=== PATIENT | female | born 1965 | race Caucasian/White ===

== ENCOUNTER 2018-08-11 23:15 | Emergency (ER) | payer OTHER ==
[~2018-08-11] VITALS: Ht 157.5 cm; Wt 101.6 kg
[~2018-08-11 23:15] MED LIST: CIPRO500 MG PO; PERCOCET 5/3251 TAB PO
[2018-08-11] MEDS ORDERED: LOSARTAN POTASS50 MG (23:33)
[2018-08-11] MEDS ORDERED: METFORMIN HCL500 M1 (23:33)
[2018-08-12] MEDS ORDERED: PEPCID40 MG PO ×2 (04:43→04:44)
[2018-08-12] MEDS ORDERED: ZYNCOF 20-400120 ML PO (04:43)
== END 2018-08-12 04:54 | disposition home or self-care (01) ==
LOC: ER 23:15
DX: J40 Bronchitis, not specified as acute or chronic (principal)

== ENCOUNTER 2018-08-14 17:30 | Emergency (ER) | payer OTHER ==
[~2018-08-14] VITALS: Ht 157.5 cm; Wt 101.6 kg
[~2018-08-14 17:30] MED LIST changes: +LOSARTAN POTASS50 MG; +METFORMIN HCL500 M1; +PEPCID40 MG PO; +ZYNCOF 20-400120 ML PO
[2018-08-14] MEDS ORDERED: HYDROCHLOROTHIA25 MG (17:43)
== END 2018-08-14 18:20 | disposition home or self-care (01) ==
LOC: ER 17:30
DX: J06.9 Acute upper respiratory infection, unspecified (principal)

== ENCOUNTER 2019-03-20 12:05 | Emergency (ER) | payer OTHER ==
[~2019-03-20] VITALS: Ht 157.5 cm; Wt 95.3 kg
[~2019-03-20 12:05] MED LIST changes: +HYDROCHLOROTHIA25 MG
== END 2019-03-20 13:51 | disposition home or self-care (01) ==
LOC: ER 12:05
DX: J03.90 Acute tonsillitis, unspecified (principal)

== ENCOUNTER 2022-03-26 08:28 | Emergency (ER) | payer OTHER ==
[~2022-03-26] VITALS: Ht 157.5 cm; Wt 97.5 kg
[2022-03-26] MEDS ORDERED: HYZAAR 100-251 EACH PO (08:34)
[2022-03-26] MEDS ORDERED: VALTREX1000 MG PO (08:35)
[2022-03-26] MEDS ORDERED: JARDIANCE25 MG PO (08:35)
[2022-03-26] MEDS ORDERED: DAFLONEX-XL 11300 MG PO (08:35)
[2022-03-26] MEDS ORDERED: OMEPRAZOLE MAGN20 MG PO (16:22)
[2022-03-26] MEDS ORDERED: PEPCID AC20 MG PO (16:22)
[2022-03-26] MEDS ORDERED: KETO10TA2 PO (16:30)
== END 2022-03-26 16:43 | disposition home or self-care (01) ==
LOC: ER 08:28
DX: K76.0 Fatty (change of) liver, not elsewhere classified (principal); E11.9 Type 2 diabetes mellitus without complications; I10 Essential (primary) hypertension; Z88.8 Allergy status to other drugs, medicaments and biological substances

== ENCOUNTER 2022-07-27 15:12 | Emergency (ER) | payer OTHER ==
[~2022-07-27] VITALS: Ht 157.5 cm; Wt 95.3 kg
[~2022-07-27 15:12] MED LIST changes: +DAFLONEX-XL 11300 MG PO; +HYZAAR 100-251 EACH PO; +JARDIANCE25 MG PO; +KETO10TA2 PO; +OMEPRAZOLE MAGN20 MG PO; +PEPCID AC20 MG PO; +VALTREX1000 MG PO
== END 2022-07-27 21:45 | disposition home or self-care (01) ==
LOC: ER 15:12
DX: T65.891A Toxic effect of other specified substances, accidental (unintentional), initial encounter (principal); Y92.010 Kitchen of single-family (private) house as the place of occurrence of the external cause; Z88.8 Allergy status to other drugs, medicaments and biological substances

== ENCOUNTER 2022-12-16 16:10 | Emergency (ER) | payer OTHER ==
[~2022-12-16] VITALS: Ht 157.5 cm; Wt 86.2 kg
[2022-12-16] MEDS ORDERED: HYDROCHLOROTHIA25 MG (16:39)
[2022-12-16] MEDS ORDERED: SINGULAIR10 MG (16:39)
== END 2022-12-16 18:05 | disposition home or self-care (01) ==
LOC: ER 16:10
DX: S69.91XA Unspecified injury of right wrist, hand and finger(s), initial encounter (principal); S59.901A Unspecified injury of right elbow, initial encounter; S89.91XA Unspecified injury of right lower leg, initial encounter; W19.XXXA Unspecified fall, initial encounter; Y93.89 Activity, other specified; Y92.89 Other specified places as the place of occurrence of the external cause; Y99.9 Unspecified external cause status; E11.9 Type 2 diabetes mellitus without complications; Z79.84 Long term (current) use of oral hypoglycemic drugs; I10 Essential (primary) hypertension; Z88.8 Allergy status to other drugs, medicaments and biological substances; Z87.09 Personal history of other diseases of the respiratory system

== ENCOUNTER 2023-01-03 12:57 | Emergency (ER) | payer OTHER ==
[~2023-01-03] VITALS: Ht 157.5 cm; Wt 86.2 kg
[~2023-01-03 12:57] MED LIST changes: +SINGULAIR10 MG
== END 2023-01-03 15:09 | disposition home or self-care (01) ==
LOC: ER 12:57
DX: S69.81XA Other specified injuries of right wrist, hand and finger(s), initial encounter (principal); W19.XXXA Unspecified fall, initial encounter; Y93.89 Activity, other specified; Y92.89 Other specified places as the place of occurrence of the external cause; Y99.8 Other external cause status; Z88.6 Allergy status to analgesic agent

== ENCOUNTER 2023-04-06 13:38 | Emergency (ER) | payer OTHER ==
[~2023-04-06] VITALS: Ht 157.5 cm; Wt 79.4 kg
[2023-04-06] MEDS ORDERED: DICLOFENAC SODI75 MG PO (15:41)
[2023-04-06] MEDS ORDERED: KETO10TA2 PO (15:45)
== END 2023-04-06 15:45 | disposition home or self-care (01) ==
LOC: ER → EDBD 13:39 → ER 13:39
DX: M25.572 Pain in left ankle and joints of left foot (principal); Z88.8 Allergy status to other drugs, medicaments and biological substances; M77.32 Calcaneal spur, left foot

== ENCOUNTER 2023-05-03 10:27 | Emergency (ER) | payer OTHER ==
[~2023-05-03] VITALS: Ht 157.5 cm; Wt 79.4 kg
[~2023-05-03 10:27] MED LIST changes: +DICLOFENAC SODI75 MG PO
[2023-05-03] MEDS ORDERED: CRESTOR10 MG PO (10:46)
[2023-05-03] MEDS ORDERED: MONJARO (10:46)
== END 2023-05-03 15:49 | disposition home or self-care (01) ==
LOC: ER 10:28
DX: H83.02 Labyrinthitis, left ear (principal); I10 Essential (primary) hypertension; Z88.8 Allergy status to other drugs, medicaments and biological substances

== ENCOUNTER 2023-05-18 08:47 | Outpatient (CLI) | payer OTHER ==
[~2023-05-18 08:47] MED LIST changes: +CRESTOR10 MG PO; +MONJARO
[2023-05-18 10:41] LABS: ALBUMIN 3.6 gm/dL (3.4-5.0); BILIRUBIN TOTAL 0.58 mg/dL (0.3-1.2); CALCIUM 9.4 mg/dL (8.5-10.1); CREATININE SERUM 0.74 mg/dL (0.55-1.02); GFR 80.89; GLOBULINA 3.4 G/DL (2.4-3.5); MAGNESIUM 2.3 mg/dL (1.8-2.4); PHOSPHOROUS 3.8 mg/dL (2.5-4.9); POTASSIUM 4.26 mEq/L (3.5-5.1)
== END 2023-05-18 09:15 | disposition home or self-care (01) ==
LOC: LAB 08:47
PROVIDERS: Internal Medicine Endocrinology, Diabetes & Metabolism; ATTEND Orthopaedic Surgery
DX: E55.9 Vitamin D deficiency, unspecified (principal); M85.9 Disorder of bone density and structure, unspecified; E83.42 Hypomagnesemia; E56.1 Deficiency of vitamin K; E21.3 Hyperparathyroidism, unspecified; E88.89 Other specified metabolic disorders; M81.8 Other osteoporosis without current pathological fracture

== ENCOUNTER 2023-07-03 18:31 | Emergency (ER) | payer OTHER ==
[~2023-07-03] VITALS: Ht 157.5 cm; Wt 77.1 kg
[2023-07-03] MEDS ORDERED: FAMOTIDINE/PF 20 MG in 0.9 % SODIUM CHLORIDE 8 ML IV PUSH STA (18:51)
[2023-07-03] MEDS ORDERED: KETOROLAC TROMETHAMINE 30 MG VIAL IV ONE (19:00)
[2023-07-03] MEDS ORDERED: 0.9 % SODIUM CHLORIDE 1,000 ML IV SCH (19:00)
[2023-07-03 19:51] LABS: HEMATOCRIT 39.7 % (36.0-45.00); HEMOGLOBIN 13.1 g/dL (12.0-15.00); MEAN CELL VOLUME 92.2 fL (80.00-100.00); MEAN CORPUSCULAR HEMOGLOBIN 30.5 pg (27.00-32.0); PLATELET COUNT 339 K/uL (150-450); RED BLOOD COUNT 4.31 M/uL (4.00-6.00); RED CELL DISTRIBUTION WIDTH 14.5 % (11.5-14.5)
[2023-07-03 20:12] LABS: ALBUMIN 3.4 gm/dL (3.4-5.0); BILIRUBIN TOTAL 0.57 mg/dL (0.3-1.2); CREATININE SERUM 0.7 mg/dL (0.55-1.02); GFR 86.25; GLOBULINA 3.3 G/DL (2.4-3.5); POTASSIUM 3.81 mEq/L (3.5-5.1); TOTAL PROTEIN 6.7 gm/dL (6.4-8.2)
[2023-07-03] MEDS ORDERED: DICLOFENAC SODI75 MG PO (21:24)
== END 2023-07-03 22:49 | disposition home or self-care (01) ==
LOC: ER 18:32
PROVIDERS: General Practice
DX: R10.11 Right upper quadrant pain (principal); Z88.8 Allergy status to other drugs, medicaments and biological substances

== ENCOUNTER 2024-03-03 08:58 | Emergency (ER) | payer OTHER ==
[~2024-03-03] VITALS: Ht 157.5 cm; Wt 82.1 kg
[~2024-03-03 08:58] MED LIST changes: +COZAAR100 MG; +HYDRALAZINE HCL25 MG; +JARDIANCE10 MG; +MOUNJARO2.5 MG/0.5; +SINGULAIR 5MG5 MG
[2024-03-03] MEDS ORDERED: ASPIRIN 81 MG TABLET.EC PO ONE (09:45)
[2024-03-03] MEDS ORDERED: TRAMADOL HCL 50 MG TABLET PO ONE (10:00)
[2024-03-03 10:13] LABS: HEMATOCRIT 47.1 % (36.0-45.00); HEMOGLOBIN 15.9 g/dL (12.0-15.00); MEAN CELL VOLUME 91.3 fL (80.00-100.00); MEAN CORPUSCULAR HEMOGLOBIN 30.9 pg (27.00-32.0); MEAN CORPUSCULAR HGB CONC 33.8 g/dl (32.0-36.0); PLATELET COUNT 434 K/uL (150-450); RED BLOOD COUNT 5.16 M/uL (4.00-6.00); RED CELL DISTRIBUTION WIDTH 14.4 % (11.5-14.5)
[2024-03-03 10:18] LABS: ABG PH 7.436 (7.35-7.45); ABG PO2 92.5 mmHg (80-100); ABG pCO2 33.6 mmHg (35-45); BASE EXCESS -1.3 mmol/l; BICARBONATE 22.1 mmol/l (23-25); SaO2 97.4 %; Tco2 23.1 mmol/l
[2024-03-03 10:41] LABS: PARTIAL THROMBOPLASTIN TIME 27.8 SECONDS (22.0-34.0); PROTHROMBIN TIME 10.9 SECONDS (9.0-11.5)
[2024-03-03 10:47] LABS: PH,URINE 5.5 (5.0-8.0); URINE APPEARANCE Clear; URINE BILIRRUBIN Negative (NEGATIVE); URINE BLOOD Negative; URINE COLOR Yellow; URINE KETONE Negative (NEGATIVE); URINE LEUKOCYTE Negative; URINE NITRATE Negative; URINE PROTEIN Negative (NEGATIVE); URINE UROBILINOGEN 0.2 E.U./dl
[2024-03-03 10:50] LABS: URINE RBC 10.6 uL (0.0-20.8)
[2024-03-03 11:06] LABS: BILIRUBIN TOTAL 0.48 mg/dL (0.3-1.2); CALCIUM 10.4 mg/dL (8.5-10.1); CREATININE SERUM 0.87 mg/dL (0.55-1.02); GFR 66.87; GLOBULINA 4.4 G/DL (2.4-3.5); POTASSIUM 3.68 mEq/L (3.5-5.1); TOTAL PROTEIN 8.4 gm/dL (6.4-8.2)
[2024-03-03 11:14] LABS: URINE GLUCOSE >=1000 MG/DL (NEGATIVE); URINE WBC 1.2 uL (0.0-23.2)
[2024-03-03 11:21] LABS: allen test SATISFACTORY; o2 21 %; puncture site RADIAL RIGHT
[2024-03-03] MEDS ORDERED: KETO10TA2 PO (15:26)
== END 2024-03-03 16:12 | disposition home or self-care (01) ==
LOC: ER 08:59
PROVIDERS: General Practice
DX: R07.89 Other chest pain (principal); I10 Essential (primary) hypertension; E11.9 Type 2 diabetes mellitus without complications; Z88.6 Allergy status to analgesic agent

== ENCOUNTER 2024-10-14 22:27 | Emergency (ER) | payer OTHER ==
[~2024-10-14] VITALS: Ht 157.5 cm; Wt 90.7 kg
[2024-10-14] MEDS ORDERED: AVAPRO300 MG PO (23:19)
[2024-10-15] MEDS ORDERED: 0.9 % SODIUM CHLORIDE 1,000 ML IV STA (00:37)
[2024-10-15] MEDS ORDERED: FAMOtidine 10 MG/ML (4ML VIAL) IV PUSH STA (00:38)
[2024-10-15] MEDS ORDERED: HYOSCYAMINE SULFATE 0.125 MG TAB.SUBL ONE (00:38)
[2024-10-15] MEDS ORDERED: FAMOTIDINE/PF 20 MG/2 ML VIAL ONE ×2 (00:38→00:41)
[2024-10-15] MEDS ORDERED: HYOSCYAMINE SULFATE 0.125 MG TAB.SUBL SL ONE (00:45)
[2024-10-15 01:18] LABS: BASO % 0.1 % (0.1-1.2); HEMATOCRIT 38.2 % (34.1-44.9); HEMOGLOBIN 12.7 g/dL (11.2-15.7); LYMPH # 0.43 (1.18-3.74); LYMPH % 5.2 % (19.3-53.1); MONO # 0.21 (0.24-0.82); MONO % 2.5 % (4.7-12.5); NEUT # 7.61 (1.56-6.13); NEUT % 91.8 % (34.0-71.1); PLATELET COUNT 332 K/uL (163-369); RED BLOOD COUNT 4.23 M/uL (3.93-5.22); RED CELL DISTRIBUTION WIDTH 13.3 % (11.6-14.4)
[2024-10-15 02:13] LABS: CALCIUM 8.2 mg/dL (8.5-10.1); CREATININE SERUM 0.73 mg/dL (0.55-1.02); GFR 81.6; POTASSIUM 3.33 mEq/L (3.5-5.1)
[2024-10-15] MEDS ORDERED: KETOROLAC TROMETHAMINE 30 MG VIAL IV STA (04:14)
[2024-10-15] MEDS ORDERED: MORPHINE SULFATE 4 MG/ML VIAL IV STA (04:14)
[2024-10-15] MEDS ORDERED: KETOROLAC TROMETHAMINE 30 MG VIAL ONE (04:23)
[2024-10-15] MEDS ORDERED: METOCLOPRAMIDE HCL 5 MG/ML VIAL ONE (05:35)
[2024-10-15] MEDS ORDERED: METOCLOPRAMIDE HCL 5 MG/ML VIAL IM STA (05:36)
[2024-10-15] MEDS ORDERED: DICYCLOMINE HCL 20 MG TABLET PO STA (07:16)
[2024-10-15] MEDS ORDERED: DICYCLOMINE HCL 10 MG CAPSULE PO ONE (07:27)
== END 2024-10-15 07:56 | disposition home or self-care (01) ==
LOC: ER 22:27
DX: K59.1 Functional diarrhea (principal); I10 Essential (primary) hypertension; Z88.8 Allergy status to other drugs, medicaments and biological substances; E11.9 Type 2 diabetes mellitus without complications; Z79.84 Long term (current) use of oral hypoglycemic drugs; D35.02 Benign neoplasm of left adrenal gland